=== PATIENT | female | born 1990 | race Caucasian/White ===

== ENCOUNTER 2018-11-20 12:26 | Emergency (ER) | payer SELFPAY ==
[2018-11-20 12:39] VITALS: BMI 25.0
[2018-11-20 12:41] VITALS: TEMP 98.2; O2SAT 99
[2018-11-20 14:19] LABS: SQUAMOUS EPITHIAL 5 /hpf (0-5); URINE BACTERIA RARE (<OCC); URINE BILIRUBIN NEGATIVE (NEGATIVE); URINE CLARITY SLIGHTY-CLOUDY (Clear); URINE COLOR YELLOW (YELLOW); URINE GLUCOSE (UA) NEG (NEGATIVE); URINE LEUKOCYTE ESTERASE NEG Leu/uL (Negative); URINE PROTEIN NEGATIVE (NEGATIVE); URINE UROBILINOGEN 0.2-1.0 mg/dL (0.2-1.0)
[2018-11-20 14:21] LABS: BASO % 0.6 % (0.0-2.0); EOS % 0.4 % (0.0-4.0); HEMOGLOBIN 12.4 g/dL (12.0-16.0); LYMPH # 1.9 K/uL (1.0-4.3); LYMPH % 33.3 % (20.0-40.0); MEAN CELL VOLUME 91.8 fl (81.0-99.0); MEAN CORPUSCULAR HEMOGLOBIN 30.2 pg (27.0-31.0); MEAN CORPUSCULAR HGB CONC 32.9 g/dL (33.0-37.0); MEAN PLATELET VOLUME 7.9 fl (7.2-11.7); MONO # 0.4 K/uL (0.0-0.8); MONO % 6.8 % (0.0-10.0); NEUT # 3.3 K/uL (1.8-7.0); NEUT % 58.9 % (50.0-75.0); NRBC % 0.1 % (0.0-0.0); RBC 4.1 Mil/uL (3.80-5.20); RED CELL DISTRIBUTION WIDTH 13.4 % (11.5-14.5); WHITE BLOOD COUNT 5.7 K/uL (4.8-10.8)
[2018-11-20 14:21] LABS: URINE BLOOD TRACE (NEGATIVE)
[2018-11-20 14:33] LABS: ALB/GLOB RATIO 1.2 (1.0-2.1); ALBUMIN 4.5 g/dL (3.5-5.0); BLOOD UREA NITROGEN 6 mg/dl (7-17); CALCIUM 8.9 mg/dL (8.4-10.2); GFR NON-AFRICAN AMERICAN > 60
[2018-11-20 14:36] LABS: ALT/SGPT 15 U/L (9-52); AST/SGOT 27 U/L (14-36)
--- NOTE | 2018-11-20 15:47 | US ---
Date of service: 11/20/2018 HISTORY: Pelvic pain, vaginal spotting. Beta HCG results: 562.71 units. COMPARISON: None available. TECHNIQUE: Transvaginal only. Real -time technique with 2D, duplex and color Doppler FINDINGS: UTERUS: Measures 5.6 x 4.4 x 7.8 cm. Normal in size and appearance. No fibroid or other mass lesion seen. ENDOMETRIUM: Measures 10.0 mm in diameter. No ultrasound findings to suggest gestational sac, fluid, debris, mass or polyp or other pathologic process within the endometrium. CERVIX: No cervical abnormality identified. Closed cervix measures 3.3 cm in length. RIGHT OVARY: Measures 2.3 x 2.6 x 3.8 cm. No solid mass. Normal flow. Multiple subcentimeter follicles. LEFT OVARY: Measures 1.4 x 2 x 3.4 cm. No solid mass. Normal flow. FREE FLUID: Trace free fluid identified in the pelvis/cul de sac. OTHER FINDINGS: None. IMPRESSION: No visible products of conception. Unremarkable uterus and adnexa as visualized.
--- NOTE | 2018-11-20 15:52 | ED PDOC ---
HPI: Female Pain Time Seen by Provider: 11/20/18 12:45 Chief Complaint (Nursing): Female Genitourinary History Per: Patient Additional Complaint(s): Pt. states for the past 2 weeks she's had pelvic cramping. Yesterday after intercourse symptoms became worse and she noticed vaginal spotting only after wiping. Of note, pt. is approximately 5 weeks and has not had any care. Denies dysuria, hematuria, N/V/D, fever, back pain, hx of ectopic pregnacies. Abnormal Vaginal Bleeding: Yes Last Menstral Period: 10/11/2018 Past Medical History Vital Signs: Last Vital Signs Temp 98.2 F 11/20/18 12:39 Pulse 87 11/20/18 12:39 Resp 17 11/20/18 12:39 BP 114/70 11/20/18 12:39 Pulse Ox 99 11/20/18 12:39 - Medical History PMH: No Chronic Diseases Denies: Depression - Family History Family History: States: No Known Family Hx - Home Medications Home Medications: Ambulatory Orders Medication Instructions Recorded Multivitamin and [id number] 1 tab PO DAILY 04/08/14 [] - Allergies Allergies/Adverse Reactions: Allergies Allergy/AdvReac Type Severity Reaction Status Date / Time No Known Allergies Allergy Verified 04/08/14 02:13 Physical Exam - Physical Exam Appears: Positive for: Well, Non-toxic, No Acute Distress Skin: Positive for: Normal Color, Warm. Negative for: Rash Eye Exam: Positive for: Normal appearance ENT: Positive for: Normal ENT Inspection Respiratory: Negative for: Respiratory Distress Gastrointestinal/Abdominal: Positive for: Normal Exam, Soft. Negative for: Tenderness Back: Positive for: Normal Inspection. Negative for: L CVA Tenderness, R CVA Tenderness Neurological/Psych: Positive for: Awake, Alert, Oriented (x3) - Laboratory Results Result Diagrams: 11/20/18 13:38 11/20/18 13:38 Lab Results: Total Bilirubin 1.0 mg/dl (0.2-1.3) 11/20/18 13:38 AST 27 U/L (14-36) 11/20/18 13:38 ALT 15 U/L (9-52) 11/20/18 13:38 Alkaline Phosphatase 60 U/L (38-126) 11/20/18 13:38 Total Protein 8.4 G/DL (6.3-8.2) H 11/20/18 13:38 Albumin 4.5 g/dL (3.5-5.0) 11/20/18 13:38 Globulin 3.9 gm/dL (2.2-3.9) 11/20/18 13:38 Albumin/Globulin Ratio 1.2 (1.0-2.1) 11/20/18 13:38 Urine Color Yellow (YELLOW) 11/20/18 13:58 Urine Clarity Slighty-cloudy (Clear) 11/20/18 13:58 Urine pH 8.0 (5.0-8.0) 11/20/18 13:58 Ur Specific [place] 1.019 (1.003-1.030) 11/20/18 13:58 Urine Protein Negative mg/dL (NEGATIVE) 11/20/18 13:58 Urine Glucose (UA) Neg mg/dL (NEGATIVE) 11/20/18 13:58 Urine Ketones Negative mg/dL (NEGATIVE) 11/20/18 13:58 Urine Blood Trace (NEGATIVE) 11/20/18 13:58 Urine Nitrate Negative (NEGATIVE) 11/20/18 13:58 Urine Bilirubin Negative (NEGATIVE) 11/20/18 13:58 Urine Urobilinogen 0.2-1.0 mg/dL (0.2-1.0) 11/20/18 13:58 Ur Leukocyte Esterase Neg Al/uL (Negative) 11/20/18 13:58 Urine RBC (Auto) 4 /hpf (0-3) H 11/20/18 13:58 Urine Microscopic WBC 1 /hpf (0-5) 11/20/18 13:58 Ur Squamous Epith Cells 5 /hpf (0-5) 11/20/18 13:58 Urine Bacteria Rare (<OCC) 11/20/18 13:58 Beta HCG, Quant 562.71 mIU/mL 11/20/18 13:38 - ECG O2 Sat by Pulse Oximetry: 99 - CT Scan/US OB US Other Rad Studies (CT/US): Radiology Report Reviewed (No visible products of conception. Unremarkable uterus and adnexa as visualized.) - Progress ED Course And Treament: Labs, US ordered. Re-evaluation Time: 15:50 (No acute abdomen on exam. Abd and plevis remains soft and non-tender to deep palpation. Pt. in no acute distress. Case and diagnostics d/w Dr. Booker and recommends repeat BHCG on after 1:30pm. Pt. verbalized correct understanding of plan and care.) Condition: Re-examined, Improved Disposition - Clinical Impression Clinical Impression: Pelvic pain during - Patient ED Disposition Is Patient to be Admitted: No - Disposition Referrals: [facility] [Outside] Disposition: Routine/Home Disposition Time: 16:00 Condition: STABLE Additional Instructions: RETURN TO ED ON MONDAY AFTER 1:30PM FOR REPEAT BLOOD WORK BUT RETURN TO ED IMMEDIATELY IF SYMPTOMS WORSEN. BENNY KINCAID, thank you for letting us take care of you today. Your provider was Sam Garrido MD and you were treated for 5 WKS PREG: VAGINAL BLEEDING. The emergency medical care you received today was directed at your acute symptoms. If you were prescribed any medication, please fill it and take as directed. It may take several days for your symptoms to resolve. Return to the Emergency Department if your symptoms worsen, do not improve, or if you have any other problems. Please contact your doctor or call one of the physicians/clinics you have been referred to that are listed on the Patient Visit Information form that is included in your discharge packet. Bring any paperwork you were given at discharge with you along with any medications you are taking to your follow up visit. Our treatment cannot replace ongoing medical care by a primary care provider outside of the emergency department. Thank you for allowing the [facility] team to be part of your care today. If you had an X-Ray or CT scan: A Radiologist will review the ED reading if any change in treatment is needed we will contact you. If you had a blood, urine, or wound culture: It will take several days for the results, if any change in treatment is needed we will contact you. If you had an STI test: It will take 48 hours for the results. Please call after 1 week if you have not heard back. Instructions: Threatened Miscarriage (DC) Forms: [facility] ([place]ian), [facility] ED School/Work Excuse
[2018-11-20 18:24] VITALS: BP 132/64; PULSE 79; RESP 18
== END 2018-11-20 18:24 | disposition home or self-care (01) ==
LOC: EDBD 12:26 → H.ER 12:26
DX: R10.2 Pelvic and perineal pain (principal); O26.891 Other specified pregnancy related conditions, first trimester; Z3A.01 Less than 8 weeks gestation of pregnancy; O20.9 Hemorrhage in early pregnancy, unspecified

== ENCOUNTER 2018-11-24 22:24 | Emergency (ER) | payer SELFPAY ==
[2018-11-24 22:33] VITALS: RESP 16; O2SAT 99
[2018-11-24 22:34] VITALS: BMI 25.3
[2018-11-24] MEDS ORDERED: Lactated Ringer's 1,000 ML IV STA (23:11)
--- NOTE | 2018-11-24 23:15 | ED PDOC ---
HPI: Female Pain Time Seen by Provider: 11/24/18 23:00 Chief Complaint (Nursing): Female Genitourinary Chief Complaint (Provider): vaginal bleeding History Per: Patient History/Exam Limitations: no limitations Onset/Duration Of Symptoms: Days Additional Complaint(s): vaginal bleeding since 11/20/18 initially was small spotting and seen in this ER on that day followed up with ob 11/22 and advised to have serial betahcg since last night bleeding more red and associated with small clots, but less than a pad intermittent pelvic cramping. Past Medical History Vital Signs: Last Vital Signs Temp 98.6 F 11/24/18 22:33 Pulse 87 11/24/18 22:33 Resp 16 11/24/18 22:33 BP 115/65 11/24/18 22:33 Pulse Ox 99 11/24/18 22:33 - Medical History PMH: Denies: Depression - Family History Family History: States: No Known Family Hx - Home Medications Home Medications: Ambulatory Orders Medication Instructions Recorded Multivitamin and [id number] 1 tab PO DAILY 04/08/14 [] - Allergies Allergies/Adverse Reactions: Allergies Allergy/AdvReac Type Severity Reaction Status Date / Time No Known Allergies Allergy Verified 11/24/18 22:57 Physical Exam - Reviewed Nursing Documentation Reviewed: Yes Vital Signs Reviewed: Yes - Physical Exam Appears: Positive for: Non-toxic, No Acute Distress Head Exam: Positive for: ATRAUMATIC Skin: Positive for: Warm, Dry Respiratory: Negative for: Respiratory Distress Gastrointestinal/Abdominal: Positive for: Soft. Negative for: Tenderness, Mass, Distended, Guarding, Rebound Back: Positive for: Normal Inspection. Negative for: L CVA Tenderness, R CVA Tenderness Neurological/Psych: Positive for: Awake, Alert. Negative for: Motor/Sensory Deficits - Laboratory Results Result Diagrams: 11/24/18 23:23 - ECG O2 Sat by Pulse Oximetry: 99 - Progress ED Course And Treament: beta hcg demonstrated marked decrease from previous pt in no distress previous blood type rh positive status dw pt findings and that they are most consistent with miscarriage. advised expectant management and reviewed return parameters. encourage rest, fluids and drawer in [place] lo[place] followup. Disposition - Clinical Impression Clinical Impression: Miscarriage Counseled Patient/Family Regarding: Studies Performed, Diagnosis, Need For Followup - Disposition Disposition: Routine/Home Disposition Time: 23:59 Condition: STABLE Additional Instructions: VISITA LEI OBSTETRICO EN 1-2 NAIR REGRESA SI USTED ESTA [place] MAS QUE SOSA KOTEX CADA SOSA HORA, USTED TIENE MUCHO DOLOR, SIENTE MUCHO CANSADA O USTED PERDIO CONISIMIENTE. Instructions: Miscarriage (DC) Print Language: KOS[place]
[2018-11-24 23:27] LABS: BASO # 0.1 K/uL (0.0-0.2); BASO % 0.7 % (0.0-2.0); EOS # 0.1 K/uL (0.0-0.7); HEMOGLOBIN 13.2 g/dL (12.0-16.0); LYMPH # 2.7 K/uL (1.0-4.3); LYMPH % 33.4 % (20.0-40.0); MEAN CELL VOLUME 89.7 fl (81.0-99.0); MEAN CORPUSCULAR HEMOGLOBIN 30.5 pg (27.0-31.0); MEAN CORPUSCULAR HGB CONC 34.1 g/dL (33.0-37.0); MEAN PLATELET VOLUME 7.7 fl (7.2-11.7); MONO # 0.6 K/uL (0.0-0.8); MONO % 7.7 % (0.0-10.0); NEUT # 4.6 K/uL (1.8-7.0); NEUT % 57.2 % (50.0-75.0); NRBC % 0.1 % (0.0-0.0); RBC 4.32 Mil/uL (3.80-5.20)
[2018-11-25 00:24] VITALS: BP 122/68; PULSE 81; TEMP 98.2
== END 2018-11-25 00:23 | disposition home or self-care (01) ==
LOC: H.ER 22:24
DX: O03.9 Complete or unspecified spontaneous abortion without complication (principal)
CPT/HCPCS: 84702; 85025; 99284; J7120